=== PATIENT | female | born 1965 | race Caucasian/White ===

== ENCOUNTER 2020-07-24 05:32 | Day surgery (SDC) | payer OTHER ==
[2020-07-18 16:16] LABS: BASOPHILS # (AUTO) 0.1 X10'3 (0-0.2); BASOPHILS % (AUTO) 0.6 % (0-1); EOSINOPHILS # (AUTO) 0.3 X10'3 (0-0.9); EOSINOPHILS % (AUTO) 2.7 % (0-6); LYMPHOCYTES # (AUTO) 3.1 X10'3 (1.1-4.8); LYMPHOCYTES % (AUTO) 27.1 % (21-51); MEAN CORPUSCULAR HEMOGLOBIN 28.3 PG (27.0-31.0); MEAN CORPUSCULAR HGB CONC 32.9 g/dL (33.0-36.5); MEAN CORPUSCULAR VOLUME 85.8 FL (78-98); MEAN PLATELET VOLUME 8.3 FL (7.4-10.4); MONOCYTES # (AUTO) 0.8 X10'3 (0-0.9); MONOCYTES % (AUTO) 6.8 % (2-12); NEUTROPHILS # (AUTO) 7.2 X10'3 (1.8-7.7); NEUTROPHILS % (AUTO) 62.8 % (42-75); PRE OP HEMATOCRIT 38.5 % (35.0-45.0); PRE OP HEMOGLOBIN 12.7 g/dL (12.0-16.0); PRE OP PLATELET COUNT 363 X10'3 (140-440); RED BLOOD COUNT 4.49 X10'6 (4.20-5.60); RED CELL DISTRIBUTION WIDTH 14.7 % (11.5-14.5)
[2020-07-18 16:26] LABS: ALBUMIN 3.3 G/DL (3.4-5.0); ALBUMIN/GLOBULIN RATIO 0.8 (1.1-1.5); ALKALINE PHOSPHATASE 113 IU/L (46-116); BLOOD UREA NITROGEN 11 MG/DL (7-18); BUN/CREATININE RATIO 12.6 (6.6-38.0); CALCIUM 8.9 MG/DL (8.5-10.1); CHLORIDE 105 MMOL/L (99-107); CREATININE 0.87 MG/DL (0.40-0.90); PRE OP ALT 37 U/L (30-65); PRE OP ANION GAP 5 (8-16); PRE OP AST 20 U/L (10-37); PRE OP BILIRUB, TOTAL 0.3 MG/DL (0.0-1.0); PRE OP GLUCOSE 109 MG/DL (70-104); PRE OP SODIUM 143 MMOL/L (135-145); TOTAL CARBON DIOXIDE 33.4 MMOL/L (24-32); TOTAL PROTEIN 7.7 G/DL (6.4-8.2); eGFR 67 ML/MIN
[2020-07-18 16:27] LABS: PRE OP POTASSIUM 2.9 MMOL/L (3.4-5.1)
[~2020-07-24] VITALS: Ht 165.1 cm; Wt 119.0 kg
[2020-07-24] VITALS (16 sets, daily range): BP systolic 110–126; BP diastolic 59–75
[~2020-07-24 05:32] MED LIST: ACET-1025 PO; ASCO500C17 PO; ASPI81TA52 PO; ATOR40TA72 PO; BRAIN BOOSTER; CALCIUM PO; CARV6.253 PO; CETI-194 PO; COLLAGEN; DOCUMENT DATE & TIME OF BETA-BLOCKER PO ONE; FAMO20TA8 PO; FURO20TA4 PO; IBUP-1986; LAN0.125T PO; LEVO112T5 PO; MULT-1085 PO; NORMAL SALINE IV ONE; ONDA8TAB13; PANT40TA54 PO; POTA20TA19 PO; SACU1TAB PO; TRANEXAMIC ACID IV ONE; ceFAZolin 2gm in dextrose, iso 50 ML IV ONE; famotidine 20mg tablet PO ONE; ringers solution, lacted 1,000 ML IV SCH
[2020-07-24 08:16] LABS: ISTAT CREATININE 0.8 mg/dL (0.6-1.1); ISTAT HGB 12.9 g/dl (12.0-16.0); ISTAT IONIZED CALCIUM 1.14 mmol/L (1.03-1.32); ISTAT K 3.5 mmol/L (3.5-5.1); POC BUN/CREATININE RATIO 16.3 (6.6-38.0)
[2020-07-24] MEDS ORDERED: aprepitant 40mg capsule PO ONE (08:39)
[2020-07-24] MEDS ORDERED: sevoflurane 250ml liquid IH ONE (09:01)
[2020-07-24] MEDS ORDERED: fentaNYL/PF 50MCG/1 ML 2ML syringe ONE (09:02)
[2020-07-24] MEDS ORDERED: dexamethasone sod phosphate 4mg/ml inj. ONE (09:38)
[2020-07-24] MEDS ORDERED: rocuronium 10mg/ml inj IV ONE (09:38)
[2020-07-24] MEDS ORDERED: propofol inj 20 ML IV ONE (09:38)
[2020-07-24] MEDS ORDERED: LIDOcaine 2% (20mg/ml) 5ml vial ONE (09:38)
[2020-07-24] MEDS ORDERED: ROPIVAcaine 0.5% (5mg/ml) 30ml vial ONE (09:38)
[2020-07-24] MEDS ORDERED: midazolam 2 mg/2 ml injection ONE (09:38)
[2020-07-24] MEDS ORDERED: ePHEDrine 50MG/ML INJ. ONE (09:41)
[2020-07-24] MEDS ORDERED: ondansetron/PF 4mg/2ml inj ONE (09:42)
[2020-07-24] MEDS ORDERED: BUPIVAcaine/PF 2.5mg/ml (0.25%) 10ml vial ONE (10:09)
[2020-07-24] MEDS ORDERED: glycopyrrolate 0.2mg/ml inj ONE (10:36)
[2020-07-24] MEDS ORDERED: neostigmine methylsulfate 1 MG/ML 10ml vial ONE (10:36)
--- NOTE | 2020-07-24 10:48 | NUR ---
RECEIVED FROM OR VIA RIONE ACCOMPANIED BY ANESTHESIOLOGIST DR CORBIN, REPORT GIVEN. PT DROWSY BUT AROUSES EASILY AND DENIES PAIN. 20 GAUGE PIV R FA PATENT AND RUNNING LR AT 100 ML/HR. L SHOULDER DRESSING CDI, COMPRISED OF 4X4 AND SCHILLEN TAPE WITH SLING IN PLACE. PPULSES PRESENT, BRISK CAP REFILL, SKIN PINK AND WARM, MCCARTNEY WITH LIMITED MOBILITY TO LUE DT BLOCK. ABD SOFT, VSS, PT RESTING COMFORTABLY.
[2020-07-24] MEDS ORDERED: HYDROcodone/acetaminophen 10/325mg tab PO PRN (10:55)
[2020-07-24] MEDS ORDERED: morphine 2 MG/ML inj. syringe IV PRN (11:40)
[2020-07-24] MEDS ORDERED: hydrALAZINE 20mg/ml inj. IV PRN (11:40)
[2020-07-24] MEDS ORDERED: ondansetron/PF 4mg/2ml inj IV PRN (11:40)
[2020-07-24] MEDS ORDERED: acetaminophen 1,000mg/100ml IV 100 ML IV PRN (11:40)
[2020-07-24] MEDS ORDERED: labetalol 20mg/4ml (5mg/ml) syringe IV PRN (11:40)
[2020-07-24] MEDS ORDERED: proCHLORperazine 10 MG/2 ml inj IV PRN (11:40)
[2020-07-24] MEDS ORDERED: meperidine/PF 25mg/ml syringe IV PRN ×3 (11:40)
[2020-07-24] MEDS ORDERED: morphine 4 MG/ML inj SYRINge IV PRN (11:40)
[2020-07-24] MEDS ORDERED: ringers solution, lacted 1,000 ML IV SCH (11:40)
--- NOTE | 2020-07-24 13:38 | NUR ---
PT AWAKE, ALERT AND DENIES PAIN. 20 GAUGE PIV R FA DCD CATH TIP INTACT. L SHOULDER DRESSING CDI, COMPRISED OF 4X4 AND SCHILLEN TAPE WITH SLING IN PLACE. PPULSES PRESENT, BRISK CAP REFILL, SKIN PINK AND WARM, MCCARTNEY WITH LIMITED MOBILITY TO LUE DT BLOCK. ABD SOFT, VSS. PT TO;ERATING FLUIDS, ABLE TO DRESS SELF WITH ASSIST, ABLE TO AMBULATE AND VOID. DISCHARGE INSTRUCTIONS GIVEN AND PT VERBALIZES UNDERSTANDING. TRANSPORTED VIA WHEELCHAIR TO DAUGHTER IN PRIVATE VEHICLE TO HOME.
== END 2020-07-24 13:38 | disposition home or self-care (01) ==
LOC: PAS 05:32
PROVIDERS: ATTEND Orthopaedic Surgery
DX: M75.42 Impingement syndrome of left shoulder (principal); M19.012 Primary osteoarthritis, left shoulder; M75.52 Bursitis of left shoulder; Z20.828 Contact with and (suspected) exposure to other viral communicable diseases; I10 Essential (primary) hypertension; E11.9 Type 2 diabetes mellitus without complications; F06.31 Mood disorder due to known physiological condition with depressive features; M17.0 Bilateral primary osteoarthritis of knee; G89.18 Other acute postprocedural pain; E66.01 Morbid (severe) obesity due to excess calories; Z68.42 Body mass index [BMI] 45.0-49.9, adult; Z90.49 Acquired absence of other specified parts of digestive tract; Z98.890 Other specified postprocedural states; Z90.710 Acquired absence of both cervix and uterus; Z87.891 Personal history of nicotine dependence; Z88.5 Allergy status to narcotic agent; Z88.8 Allergy status to other drugs, medicaments and biological substances; Z91.041 Radiographic dye allergy status; Z79.899 Other long term (current) drug therapy
CPT/HCPCS: 29824; 29826; 36415; 64415; 76942; 80047; 80053; 85025; 87635; J1100; J2001; J2250; J2405; J2704; J2710; J3010; J3490; J7120; J8501; A4565; A4618; A6449; A7000; J2795

== ENCOUNTER 2021-03-01 11:50 | Emergency (ER) | payer OTHER ==
[~2021-03-01] VITALS: Ht 165.1 cm; Wt 112.3 kg
[~2021-03-01 11:50] MED LIST changes: -ACET-1025 PO; +ALLER-CLEAR PO; -ASCO500C17 PO; -ASPI81TA52 PO; -BRAIN BOOSTER; -CALCIUM PO; -CARV6.253 PO; -CETI-194 PO; -COLLAGEN; -DOCUMENT DATE & TIME OF BETA-BLOCKER PO ONE; -FAMO20TA8 PO; +GINK120T4 PO; -IBUP-1986; +IBUP-1986 PO; -LAN0.125T PO; -MULT-1085 PO; -NORMAL SALINE IV ONE; -ONDA8TAB13; +PSYL575P22 PO; -TRANEXAMIC ACID IV ONE; -ceFAZolin 2gm in dextrose, iso 50 ML IV ONE; -famotidine 20mg tablet PO ONE; -ringers solution, lacted 1,000 ML IV SCH
[2021-03-01 12:45] LABS: BASOPHILS # (AUTO) 0.1 X10'3 (0-0.2); BASOPHILS % (AUTO) 0.8 % (0-1); EOSINOPHILS # (AUTO) 0.4 X10'3 (0-0.9); EOSINOPHILS % (AUTO) 4.3 % (0-6); HEMATOCRIT 37.1 % (35.0-45.0); HEMOGLOBIN 12.1 g/dl (12.0-16.0); LYMPHOCYTES # (AUTO) 2.5 X10'3 (1.1-4.8); LYMPHOCYTES % (AUTO) 27.2 % (21-51); MEAN CORPUSCULAR HEMOGLOBIN 28.1 PG (27.0-31.0); MEAN CORPUSCULAR HGB CONC 32.7 g/dL (33.0-36.5); MEAN PLATELET VOLUME 8.7 FL (7.4-10.4); MONOCYTES # (AUTO) 0.6 X10'3 (0-0.9); MONOCYTES % (AUTO) 6.1 % (2-12); NEUTROPHILS # (AUTO) 5.6 X10'3 (1.8-7.7); NEUTROPHILS % (AUTO) 61.6 % (42-75); PLATELET COUNT 354 X10'3 (140-440); RED BLOOD COUNT 4.32 X10'6 (4.20-5.60); WHITE BLOOD COUNT 9.1 X10'3 (4.5-11.0)
[2021-03-01 12:53] LABS: ALBUMIN 3.6 G/DL (3.4-5.0); ANION GAP 9 (8-16); BLOOD UREA NITROGEN 20 MG/DL (7-18); C-REACTIVE PROTEIN 2.09 MG/DL (0.0-0.5); CALCIUM 9.2 MG/DL (8.5-10.1); CHLORIDE 103 MMOL/L (99-107); CREATININE 0.87 MG/DL (0.40-0.90); GLUCOSE 112 MG/DL (70-104); POTASSIUM 3.7 MMOL/L (3.5-5.1); SODIUM 143 MMOL/L (135-145); TOTAL CARBON DIOXIDE 30.6 MMOL/L (24-32); eGFR 67 ML/MIN
[2021-03-01] MEDS ORDERED: CEPH250T PO (17:10)
[2021-03-01 17:16] VITALS: BP 140/72
== END 2021-03-01 17:18 | disposition home or self-care (01) ==
LOC: ER 11:50
DX: L03.115 Cellulitis of right lower limb (principal); Z98.890 Other specified postprocedural states; Z88.5 Allergy status to narcotic agent; Z88.8 Allergy status to other drugs, medicaments and biological substances; Z79.899 Other long term (current) drug therapy
CPT/HCPCS: 36415; 73560; 80048; 83605; 84145; 85025; 85651; 86140; 87040; 99284; 99285

== ENCOUNTER 2021-12-10 07:50 | Observation (INO) | payer OTHER ==
[2021-12-03 11:55] LABS: BASOPHILS # (AUTO) 0.1 X10'3 (0-0.2); BASOPHILS % (AUTO) 1.1 % (0-1); EOSINOPHILS # (AUTO) 0.3 X10'3 (0-0.9); EOSINOPHILS % (AUTO) 2.9 % (0-6); LYMPHOCYTES # (AUTO) 2.9 X10'3 (1.1-4.8); LYMPHOCYTES % (AUTO) 30.3 % (21-51); MEAN CORPUSCULAR HEMOGLOBIN 27.6 PG (27.0-31.0); MEAN CORPUSCULAR HGB CONC 32.9 g/dL (33.0-36.5); MEAN CORPUSCULAR VOLUME 83.7 FL (78-98); MEAN PLATELET VOLUME 8.3 FL (7.4-10.4); MONOCYTES # (AUTO) 0.7 X10'3 (0-0.9); NEUTROPHILS # (AUTO) 5.7 X10'3 (1.8-7.7); NEUTROPHILS % (AUTO) 58.7 % (42-75); PRE OP HEMATOCRIT 41.3 % (35.0-45.0); PRE OP HEMOGLOBIN 13.6 g/dL (12.0-16.0); PRE OP PLATELET COUNT 350 X10'3 (140-440); RED BLOOD COUNT 4.93 X10'6 (4.20-5.60); RED CELL DISTRIBUTION WIDTH 14.8 % (11.5-14.5)
[2021-12-03 12:03] LABS: ALBUMIN 3.7 G/DL (3.4-5.0); ALKALINE PHOSPHATASE 127 IU/L (46-116); BLOOD UREA NITROGEN 16 MG/DL (7-18); BUN/CREATININE RATIO 18.4 (6.6-38.0); CHLORIDE 106 MMOL/L (99-107); CREATININE 0.87 MG/DL (0.40-0.90); PRE OP ALT 28 U/L (30-65); PRE OP ANION GAP 8 (8-16); PRE OP AST 19 U/L (10-37); PRE OP BILIRUB, TOTAL 0.4 MG/DL (0.0-1.0); PRE OP GLUCOSE 96 MG/DL (70-104); PRE OP POTASSIUM 3.9 MMOL/L (3.4-5.1); PRE OP SODIUM 141 MMOL/L (135-145); TOTAL CARBON DIOXIDE 27.2 MMOL/L (24-32); TOTAL PROTEIN 7.5 G/DL (6.4-8.2); eGFR 67 ML/MIN
[~2021-12-10] VITALS: Ht 167.6 cm; Wt 117.4 kg
[2021-12-10] VITALS (22 sets, daily range): BP systolic 94–142; BP diastolic 54–78
[~2021-12-10 07:50] MED LIST changes: +ASPI-612 PO; +CALC1CAP21 PO; +CIDE300T3 PO; -FURO20TA4 PO; +MULT-1085 PO; +MULT-1130 PO; +POTA-207 PO; -POTA20TA19 PO; +cefazolin/dext.iso 2gm/50ml IV ONE; +famotidine 20mg tablet PO ONE; +ringers solution, lacted 1,000 ML IV SCH; +tranexamic acid 650mg tablet PO ONE; +vancomycin/NS 1 GM in NS 250 ML IV ONE
[2021-12-10] MEDS ORDERED: ROPIVAcaine 0.5% (5mg/ml) 30ml vial ONE ×2 (09:36→11:01)
[2021-12-10] MEDS ORDERED: ketorolac trometh. 30mg/ml inj. ONE (09:36)
[2021-12-10] MEDS ORDERED: fentaNYL /PF 50mcg/ml 5ml ampule ONE (10:50)
[2021-12-10] MEDS ORDERED: cloNIDine hcl/PF 100mcg/ml inj ONE (10:53)
[2021-12-10] MEDS ORDERED: dexamethasone sod phosphate 4mg/ml inj. ONE (11:01)
[2021-12-10] MEDS ORDERED: neostigmine methylsulfate 1 MG/ML 10ml vial ONE (11:01)
[2021-12-10] MEDS ORDERED: propofol inj 20 ML IV ONE (11:01)
[2021-12-10] MEDS ORDERED: LIDOcaine 2% (20mg/ml) 5ml vial ONE (11:01)
[2021-12-10] MEDS ORDERED: glycopyrrolate 0.2mg/ml inj ONE (11:01)
[2021-12-10] MEDS ORDERED: ondansetron/PF 4mg/2ml inj ONE (11:01)
[2021-12-10] MEDS ORDERED: rocuronium 10mg/ml inj IV ONE (11:01)
[2021-12-10] MEDS ORDERED: ePHEDrine 50MG/ML INJ. ONE (11:06)
[2021-12-10] MEDS ORDERED: albuterol 60 PUFF/8GM Inhaler IH ONE (11:06)
[2021-12-10] MEDS ORDERED: sevoflurane 250ml liquid IH ONE (11:06)
[2021-12-10] MEDS ORDERED: acetaminophen 1000 MG/100ml vial IV ONE (11:06)
[2021-12-10] MEDS ORDERED: morphine 2 MG/ML inj. syringe IV PRN (11:25)
[2021-12-10] MEDS ORDERED: morphine 4 MG/ML inj SYRINge IV PRN (11:25)
[2021-12-10] MEDS ORDERED: ringers solution, lacted 1,000 ML IV SCH (11:25)
[2021-12-10] MEDS ORDERED: proCHLORperazine 10 MG/2 ml inj IV PRN (11:25)
[2021-12-10] MEDS ORDERED: ondansetron/PF 4mg/2ml inj IV PRN ×2 (11:25→13:10)
[2021-12-10] MEDS ORDERED: meperidine/PF 25mg/ml syringe IV PRN ×3 (11:25)
[2021-12-10] MEDS ORDERED: HYDROmorphone inj. 0.5 MG/0.5 ML DISP.SYRIN IV PRN (13:10)
[2021-12-10] MEDS ORDERED: naloxone 0.4 mg/ml inj IV PRN (13:10)
[2021-12-10] MEDS ORDERED: bisacodyl 10mg suppository rectal RC PRN (13:10)
[2021-12-10] MEDS ORDERED: acetaminophen 325mg tablet PO PRN (13:10)
[2021-12-10] MEDS ORDERED: diphenhydrAMINE 25mg capsule PO PRN ×2 (13:10)
[2021-12-10] MEDS ORDERED: oxyCODONE IR 5mg (immed. release) tablet PO PRN ×3 (13:10→21:10)
[2021-12-10] MEDS ORDERED: magnesium hydroxide 30ml (MOM) UD suspension PO PRN (13:10)
--- NOTE | 2021-12-10 13:22 | NUR ---
Received from OR via BED, accompanied by Anesthesiologist DR CARLIN and report given by Anesthesiologist AND COMPILATION CLERK. PT DROWSY, NO S/S OF DISTRESS/DISCOMFORT. PT W/DRSG LEFT KNEE CDI, LEG WRAP, POWDER PACK. Addendum: 12/10/21 at 1359 by Katja Omalley RN Amended: Links added.
[2021-12-10] MEDS ORDERED: psyllium seed 3.4 gm packet PO PRN (13:45)
[2021-12-10] MEDS: acetaminophen 325mg tablet PO SCH ×2 (14:00→20:08)
--- NOTE | 2021-12-10 14:00 | NUR ---
Patient in room [facility]TH[facility] 4015B. I have received report from GUERLINE GARNETT FROM [facility] and had the opportunity to ask questions and assume patient care.
--- NOTE | 2021-12-10 15:02 | NUR ---
Report called to receiving nurse. Transferred via BED, 2 BAGS OF Belongings, FULL DENTURES AND GLASSES SENT W/PT TO ROOM 401. RECEIVING RN AT BEDSIDE TO RECEIVE PT. BLL, CALL LIGHT GIVEN, SIDE RAILS UP X 2. Special Issues communicated to receiving nurse. YES. Addendum: 12/10/21 at 1524 by Katja Omalley RN Amended: Links added.
[2021-12-10] MEDS: ceFAZolin/D5W- 1GM premix 50 ML IV SCH ×2 (17:06→23:20)
--- NOTE | 2021-12-10 18:41 | NUR ---
Problems reprioritized. Patient report given, questions answered & plan of care reviewed with GUERLINE MAN. Addendum: 12/10/21 at 1842 by Lila Fournier RN REPORT NOT GIVEN WITH GUERLINE MAN, GIVEN TO GUERLINE BLAIR
[2021-12-10] MEDS: ibuprofen tablet 400 MG TABLET PO SCH (19:49)
[2021-12-10] MEDS: HYDROmorphone 1 mg/ml syringe IV PRN (19:56)
[2021-12-10] MEDS: sacubitril/valsartan 24mg-26mg tablet PO SCH (19:58)
[2021-12-10] MEDS: potassium cl 20mEq in 1/2 NS 1,000 ML IV SCH ×2 (19:58→21:10)
[2021-12-10] MEDS ORDERED: vancomycin/NS 1 GM ADD-VANTAGE 250 ML IV SCH (20:00)
[2021-12-10] MEDS ORDERED: atorvastatin 20mg tablet PO SCH (21:00)
[2021-12-10] MEDS ORDERED: sennosides 8.6mg tablet PO SCH (21:00)
[2021-12-10] MEDS: oxyCODONE IR 5mg (immed. release) tablet PO PRN (22:50)
[2021-12-11 02:00] VITALS: BP 108/64
[2021-12-11] MEDS: acetaminophen 325mg tablet PO SCH ×3 (02:10→14:00)
[2021-12-11] MEDS: HYDROmorphone 1 mg/ml syringe IV PRN (03:16)
[2021-12-11] MEDS: oxyCODONE IR 5mg (immed. release) tablet PO PRN (05:31)
[2021-12-11 06:00] VITALS: BP 109/62
[2021-12-11] MEDS: potassium cl 20mEq in 1/2 NS 1,000 ML IV SCH ×2 (06:00→13:10)
--- NOTE | 2021-12-11 06:46 | NUR ---
Problems reprioritized. Patient report given, questions answered & plan of care reviewed with GUERLINE MORENO.
[2021-12-11 07:27] LABS: BASOPHILS % (AUTO) 0.2 % (0-1); EOSINOPHILS % (AUTO) 0 % (0-6); HEMATOCRIT 35.7 % (35.0-45.0); HEMOGLOBIN 11.7 g/dl (12.0-16.0); LYMPHOCYTES % (AUTO) 11.6 % (21-51); MEAN CORPUSCULAR HEMOGLOBIN 27.7 PG (27.0-31.0); MEAN CORPUSCULAR HGB CONC 32.9 g/dL (33.0-36.5); MEAN CORPUSCULAR VOLUME 84.3 FL (78-98); MEAN PLATELET VOLUME 8.8 FL (7.4-10.4); MONOCYTES # (AUTO) 0.9 X10'3 (0-0.9); MONOCYTES % (AUTO) 5.2 % (2-12); PLATELET COUNT 339 X10'3 (140-440); RED BLOOD COUNT 4.23 X10'6 (4.20-5.60); RED CELL DISTRIBUTION WIDTH 14.9 % (11.5-14.5); WHITE BLOOD COUNT 16.9 X10'3 (4.5-11.0)
[2021-12-11 07:31] LABS: ANION GAP 9 (8-16); CHLORIDE 106 MMOL/L (99-107); POTASSIUM 4.3 MMOL/L (3.5-5.1); SODIUM 142 MMOL/L (135-145); TOTAL CARBON DIOXIDE 27.4 MMOL/L (24-32)
[2021-12-11] MEDS ORDERED: aspirin 81mg, enteric-coated 1 TAB TABLET.DR PO SCH (08:00)
[2021-12-11] MEDS ORDERED: non-formulary drug (Multivits-Min/Folic Acid/Biot (Hair, Skin & Nails Caplet) 1 TAB) PO SCH (08:00)
[2021-12-11] MEDS ORDERED: SYNTHROID 112 MCG PO SCH (08:00)
[2021-12-11] MEDS ORDERED: GINKGO BILOBA 60 MG PO SCH (08:00)
[2021-12-11] MEDS ORDERED: potassium Cl 20 mEq SR tablet PO SCH (08:00)
[2021-12-11] MEDS: sacubitril/valsartan 24mg-26mg tablet PO SCH (08:00)
[2021-12-11] MEDS ORDERED: multivitamins, therapeutics tablet PO SCH (08:00)
[2021-12-11] MEDS ORDERED: loratadine 10mg tablet PO SCH (08:00)
[2021-12-11] MEDS ORDERED: pantoprazole 40mg Tablet.DR PO SCH (08:00)
[2021-12-11] MEDS ORDERED: calcium carbonate/vitamin D3 tablet PO SCH (08:00)
[2021-12-11] MEDS: ibuprofen tablet 400 MG TABLET PO SCH (08:00)
[2021-12-11] MEDS ORDERED: levoTHYROXINE 112mcg tablet PO SCH (08:00)
[2021-12-11] MEDS ORDERED: aspirin 325mg tablet PO SCH (08:30)
[2021-12-11 10:00] VITALS: BP 101/58
--- NOTE | 2021-12-11 13:24 | NUR ---
Joint surgery consult: Pt s/p L knee surgery this admit per EMR. Pt seen by RD for written/verbal high protein ed w/ RD contact information provided. Pt reports being picky eater w/ many food preferences requests fruit, orange juice, and toast TIDWM, hot chocolate WS, likes block, and dislikes: eggs, red sauces, and coffee. Pt also reports bottom dentures left in car so unable to adequately chew foods; is agreeable to soft to chew foods. Dietary notified of pt food preferences. RD encouraged pt to contact dietitian's office if further nutrition questions/concerns post-op. Addendum: 12/11/21 at [address] Amended: Links added.
[2021-12-12] MEDS ORDERED: acetaminophen 325mg tablet PO PRN (13:10)
== END 2021-12-11 14:57 | disposition home or self-care (01) ==
LOC: PAS 07:50 → ORTHO 4S 13:11
PROVIDERS: ADMIT Orthopaedic Surgery; ATTEND Orthopaedic Surgery
DX: M17.32 Unilateral post-traumatic osteoarthritis, left knee (principal); Z20.822 Contact with and (suspected) exposure to COVID-19; M21.00 Valgus deformity, not elsewhere classified, unspecified site; F41.8 Other specified anxiety disorders; E66.01 Morbid (severe) obesity due to excess calories; Z79.899 Other long term (current) drug therapy; Z98.890 Other specified postprocedural states
CPT/HCPCS: 27447; 36415; 80051; 80053; 82948; 85025; 87081; 93005; 96365; 96366; 96367; 96375; 96376; 97116; 97161; 97530; C1713; C1758; C1776; G0378; J0131; J0690; J0735; J1100; J1170; J1885; J2270; J2405; J2704; J2710; J2795; J3010; J3370; J3480; J3490; J7120; U0003; U0005; A4215; A7000